=== PATIENT | male | born 1975 | race Caucasian/White ===

== ENCOUNTER 2019-06-11 08:23 | Emergency (ER) | payer BC, OTHER ==
[~2019-06-11] VITALS: Ht 182.9 cm; Wt 105.7 kg
--- NOTE | 2019-06-11 08:52 | NUR ---
SUGAR 583 NOTIFIED
[2019-06-11] MEDS: IV NS 0.9% 1,000 ML BAG IV ONE (09:20)
[2019-06-11 09:21] LABS: BASOPHILS % (AUTO) 0.5 % (0.0-2.0); EOSINOPHILS % (AUTO) 0.6 % (0.0-6.0); HEMATOCRIT 44 % (39-51); HEMOGLOBIN 14.4 g/dL (13.5-17.5); LYMPHOCYTES # (AUTO) 2.1 /CMM (0.8-4.8); LYMPHOCYTES % (AUTO) 41.1 % (20.0-44.0); MEAN CORPUSCULAR HGB CONC 32 g/dl (31.0-36.0); MEAN CORPUSCULAR VOLUME 87 fL (80-96); MONOCYTES # (AUTO) 0.4 /CMM (0.1-1.30); MONOCYTES % (AUTO) 8.3 % (2.0-12.0); NEUTROPHILS # (AUTO) 2.5 /CMM (1.8-8.9); NEUTROPHILS % (AUTO) 49.5 % (43.0-81.0); PLATELET COUNT (AUTO) 295 /CMM (150-450); WHITE BLOOD COUNT (AUTO) 5.1 K/uL (4.3-11.0)
--- NOTE | 2019-06-11 09:29 | NUR ---
PATIENT CAME IN TO THE ER C/O DIFFUSE ABDOMINAL PAIN W/ N/V/D X 2 1/2 DAYS. HX CROHN'S ALSO C/O BG READING HIGH FROM DEVICE. ON ROOM AIR, BREATHING EVENLY AND UNLABORED. CONNECTED TO THE MONITOR ACCORDINGLY.
[2019-06-11] MEDS ORDERED: diphenhydrAMINE HCL 50 MG/ML VIAL IV ONE (09:30)
[2019-06-11] MEDS: METOCLOPRAMIDE HCL 10 MG/2 ML VIAL IV ONE (09:30)
[2019-06-11] MEDS: HYDROMORPHONE INJ 2 MG/ML DISP.SYRIN IV ONE ×2 (09:30→10:46)
[2019-06-11] MEDS ORDERED: diphenhydrAMINE HCL 50 MG/ML VIAL ONE (09:31)
[2019-06-11] MEDS ORDERED: METOCLOPRAMIDE HCL 10 MG/2 ML VIAL ONE (09:31)
[2019-06-11] MEDS ORDERED: HYDROMORPHONE INJ 2 MG/ML DISP.SYRIN ONE ×2 (09:31→10:40)
[2019-06-11 09:32] LABS: ALBUMIN 3.4 g/dL (3.4-5.0); CALCIUM, SERUM 9.6 mg/dL (8.5-10.1); CARBON DIOXIDE 25 mmol/L (21-32); CHLORIDE 94 mmol/L (98-107); CREATININE 1.1 mg/dL (0.6-1.3); LIPASE 221 U/L (73-393); POTASSIUM 4.8 mmol/L (3.5-5.1); SODIUM SERUM 129 mmol/L (136-145)
[2019-06-11 09:34] LABS: BILIRUBIN,DIRECT 0.1 mg/dL (0.0-0.2); GLUCOSE 596 mg/dL (74-106); UREA NITROGEN, BLOOD 19 mg/dL (7-18)
[2019-06-11 09:35] LABS: ALANINE AMINOTRANSFERASE 20 U/L (12-78); ALKALINE PHOSPHATASE 86 U/L (46-116); ASPARTATE AMINOTRANSFERASE 12 U/L (15-37); BILIRUBIN,TOTAL 0.4 mg/dL (0.2-1.0)
[2019-06-11 09:36] LABS: TOTAL PROTEIN, SERUM 7.6 g/dL (6.4-8.2)
[2019-06-11] MEDS: diphenhydrAMINE HCL 50 MG/ML VIAL IV ONE (09:42)
[2019-06-11] MEDS ORDERED: INSULIN REGULAR, HUMAN 100 UNIT/ML 10 ML VIAL ONE (09:57)
[2019-06-11] MEDS: INSULIN REGULAR, HUMAN 100 UNIT/ML 10 ML VIAL IV ONE ×2 (10:00→10:30)
[2019-06-11 10:40] LABS: APPEARANCE,URINE Clear (CLEAR); BILIRUBIN,URINE Negative (NEGATIVE); BLOOD, URINE Negative Ery/uL (NEGATIVE); COLOR,URINE Yellow (YELLOW); KETONES,URINE Negative (NEGATIVE); LEUKOCYTE ESTERASE ,URINE Negative (NEGATIVE); NITRITE, URINE Negative (NEGATIVE); PROTEIN,URINE Negative (NEGATIVE); UGLUCOSE >=1000 mg/dL (NEGATIVE); UROBILINOGEN,URINE 0.2 EU/dL (0.2)
[2019-06-11 10:46] LABS: BACTERIA,URINE Rare /HPF (None Seen); RBC,URINE 0-2 /HPF (0-2); SQUAMOUS EPITHELIAL CELL,UR Rare /HPF (None Seen); WBC,URINE 0-2 /HPF (0-3)
[2019-06-11] MEDS ORDERED: diphenhydrAMINE HCL 50 MG CAPSULE ONE (11:24)
[2019-06-11] MEDS: diphenhydrAMINE HCL 50 MG CAPSULE PO ONE (11:28)
[2019-06-11 11:29] VITALS: BP 130/73
--- NOTE | 2019-06-11 11:29 | NUR ---
Patient discharged to home in stable condition. Written and verbal after care instructions given. Patient verbalizes understanding of instruction.IV removed. Catheter intact and site benign. Pressure and 4x4 applied to site. No bleeding noted.
== END 2019-06-11 11:29 | disposition home or self-care (01) ==
LOC: ER 08:23
DX: R10.84 Generalized abdominal pain (principal); E11.65 Type 2 diabetes mellitus with hyperglycemia; R11.2 Nausea with vomiting, unspecified; R19.7 Diarrhea, unspecified; Z98.890 Other specified postprocedural states; Z88.0 Allergy status to penicillin; Z88.1 Allergy status to other antibiotic agents; Z88.5 Allergy status to narcotic agent; Z88.6 Allergy status to analgesic agent; Z88.8 Allergy status to other drugs, medicaments and biological substances
CPT/HCPCS: 36415; 80048; 80076; 81001; 82010; 82962 ×3; 83690; 84484; 85025; 87086; 93005; 96361; 96374; 96375; 96376; 99284; A4216; J1170 ×2; J1200; J1815; J2765; J7030; Q0163; 81000-TC

== ENCOUNTER 2019-06-15 10:59 | Emergency (ER) | payer BC ==
[~2019-06-15] VITALS: Ht 182.9 cm; Wt 105.7 kg
--- NOTE | 2019-06-15 11:30 | NUR ---
PT APPEARS TO BE RESTING COMFORTABLY AND IS ON HIS PHONE. PT IS ON THE MONITOR AND CONTINUOUS PULSE OX. PT STATED THAT HE HAS AN ESOPHAGEAL TEAR/STAGE C ESOPHAGITIS. PT STATED THAT HE HAS CHRONES DISEASE AND IS DUE FOR ANOTHER TEST AT [facility], BUT IT HAS NOT BEEN SET UP YET. PT IS C/O LLQ ABD PAIN AND WHEN ASKED RUBS THE AREA AND HAS A FACIAL [place]. 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 PT WILL CONTINUE TO BE MONITORED.
[2019-06-15] MEDS ORDERED: diphenhydrAMINE HCL 50 MG/ML VIAL IV ONE ×3 (12:30→14:30)
[2019-06-15] MEDS ORDERED: HYDROMORPHONE INJ 2 MG/ML DISP.SYRIN IV ONE (12:30)
[2019-06-15] MEDS ORDERED: IV NS 0.9% 1,000 ML BAG IV ONE (12:30)
[2019-06-15] MEDS ORDERED: ONDANSETRON HCL/PF 4 MG/2 ML VIAL IVP ONE (12:30)
[2019-06-15] MEDS ORDERED: ONDANSETRON HCL/PF 4 MG/2 ML VIAL ONE (12:39)
[2019-06-15] MEDS ORDERED: diphenhydrAMINE HCL 50 MG/ML VIAL ONE ×2 (12:39→14:24)
[2019-06-15] MEDS ORDERED: HYDROMORPHONE 1 MG/1 ML DISP.SYRIN ONE (12:39)
[2019-06-15 12:40] LABS: BASOPHILS % (AUTO) 0.6 % (0.0-2.0); EOSINOPHILS % (AUTO) 0.2 % (0.0-6.0); HEMATOCRIT 44 % (39-51); HEMOGLOBIN 14.6 g/dL (13.5-17.5); LYMPHOCYTES # (AUTO) 1.4 /CMM (0.8-4.8); LYMPHOCYTES % (AUTO) 30.2 % (20.0-44.0); MEAN CORPUSCULAR HGB CONC 33 g/dl (31.0-36.0); MEAN CORPUSCULAR VOLUME 85 fL (80-96); MONOCYTES # (AUTO) 0.3 /CMM (0.1-1.30); MONOCYTES % (AUTO) 5.9 % (2.0-12.0); NEUTROPHILS % (AUTO) 63.1 % (43.0-81.0); PLATELET COUNT (AUTO) 253 /CMM (150-450); RED BLOOD CELL COUNT(AUTO) 5.19 MIL/uL (4.5-6.0); WHITE BLOOD COUNT (AUTO) 4.7 K/uL (4.3-11.0)
[2019-06-15 12:53] LABS: CALCIUM, SERUM 9.5 mg/dL (8.5-10.1); CREATININE 0.7 mg/dL (0.6-1.3); POTASSIUM 4.3 mmol/L (3.5-5.1)
[2019-06-15 12:58] LABS: ALBUMIN 3.3 g/dL (3.4-5.0); BILIRUBIN,DIRECT 0.2 mg/dL (0.0-0.2); BILIRUBIN,TOTAL 0.7 mg/dL (0.2-1.0); TOTAL PROTEIN, SERUM 7.7 g/dL (6.4-8.2)
[2019-06-15] MEDS ORDERED: IV NS 0.9% 250 ML IV ONE (13:52)
[2019-06-15] MEDS ORDERED: CT SWABBABLE VALVE TRANS SET 1 EA INFUS.SET MC ONE (13:52)
[2019-06-15] MEDS ORDERED: IOHEXOL-300 100 ML VIAL IV ONE (13:52)
--- NOTE | 2019-06-15 13:54 | NUR ---
pt refused ct.
--- NOTE | 2019-06-15 14:33 | NUR ---
IV removed. Catheter intact and site benign. Pressure and 4x4 applied to site. No bleeding noted. Patient discharged to home in stable condition. Written and verbal after care instructions given. Patient verbalizes understanding of instruction. PT AMBULATED OUT TO THE LOBBY TO WAIT FOR UBER. PT AMBULATED OUT WITH A STEADY GAIT. VSS.
[2019-06-15 14:37] VITALS: BP 128/81
== END 2019-06-15 14:38 | disposition home or self-care (01) ==
LOC: ER 11:00
DX: R10.32 Left lower quadrant pain (principal); E11.65 Type 2 diabetes mellitus with hyperglycemia; Z76.5 Malingerer [conscious simulation]; Z98.890 Other specified postprocedural states; Z88.0 Allergy status to penicillin; Z88.6 Allergy status to analgesic agent; Z88.1 Allergy status to other antibiotic agents
CPT/HCPCS: 36415; 80048; 80076; 83690; 85025; 85730; 96361; 96374; 96375; 96376; 99283; J1170; J1200 ×2; J2405; J7050; Q9967

== ENCOUNTER 2019-06-20 07:31 | Emergency (ER) | payer BC ==
[~2019-06-20] VITALS: Ht 182.9 cm; Wt 106.1 kg
[2019-06-20] MEDS ORDERED: diphenhydrAMINE HCL 50 MG/ML VIAL IV ONE ×2 (08:30→10:30)
[2019-06-20] MEDS ORDERED: IV NS 0.9% 1,000 ML BAG IV ONE (08:30)
[2019-06-20] MEDS ORDERED: HYDROMORPHONE INJ 2 MG/ML DISP.SYRIN IV ONE ×2 (08:30→10:00)
[2019-06-20] MEDS ORDERED: HYDROMORPHONE INJ 2 MG/ML DISP.SYRIN ONE ×2 (08:34→09:55)
[2019-06-20] MEDS ORDERED: diphenhydrAMINE HCL 50 MG/ML VIAL ONE ×2 (08:34→10:25)
--- NOTE | 2019-06-20 08:46 | NUR ---
"abdominal pain started yesterday worse now". PT AAOX4, VSS. DENIES CP, SOB, DIZZINESS, N/V/D @ THIS TIME. PT SEEN & EVAL'D BY DR. QUIÑONEZ. MEDICATED ORDERED, WILL CONT TO MONITOR.
[2019-06-20 08:48] LABS: BASOPHILS % (AUTO) 0.8 % (0.0-2.0); EOSINOPHILS % (AUTO) 0.8 % (0.0-6.0); HEMATOCRIT 43 % (39-51); LYMPHOCYTES # (AUTO) 1.7 /CMM (0.8-4.8); LYMPHOCYTES % (AUTO) 39.7 % (20.0-44.0); MEAN CORPUSCULAR HGB CONC 33 g/dl (31.0-36.0); MEAN CORPUSCULAR VOLUME 86 fL (80-96); MONOCYTES # (AUTO) 0.4 /CMM (0.1-1.30); MONOCYTES % (AUTO) 9.1 % (2.0-12.0); NEUTROPHILS # (AUTO) 2.1 /CMM (1.8-8.9); NEUTROPHILS % (AUTO) 49.6 % (43.0-81.0); PLATELET COUNT (AUTO) 221 /CMM (150-450); RED BLOOD CELL COUNT(AUTO) 4.94 MIL/uL (4.5-6.0); WHITE BLOOD COUNT (AUTO) 4.2 K/uL (4.3-11.0)
[2019-06-20 09:02] LABS: ALBUMIN 3.3 g/dL (3.4-5.0); BILIRUBIN,DIRECT 0.1 mg/dL (0.0-0.2); BILIRUBIN,TOTAL 0.3 mg/dL (0.2-1.0); CREATININE 0.8 mg/dL (0.6-1.3); TOTAL PROTEIN, SERUM 7.4 g/dL (6.4-8.2)
[2019-06-20 09:03] LABS: POTASSIUM 5.1 mmol/L (3.5-5.1)
[2019-06-20] MEDS ORDERED: IOHEXOL-300 100 ML VIAL IV ONE (09:10)
[2019-06-20] MEDS ORDERED: IV NS 0.9% 250 ML IV ONE (09:10)
--- NOTE | 2019-06-20 10:00 | NUR ---
MEDICATED FOR PAIN PER ERMD ORDER, PT RONI WELL.
--- NOTE | 2019-06-20 10:28 | NUR ---
PT C/O ITCHING, MEDICATED WITH 25 MG OF BENADRYL IVP, PT RONI WELL.
[2019-06-20 10:47] VITALS: BP 130/84
--- NOTE | 2019-06-20 10:48 | NUR ---
Patient discharged to home in stable condition. Written and verbal after care instructions given. Patient verbalizes understanding of instruction. IV removed. Catheter intact and site benign. Pressure and 4x4 applied to site. No bleeding noted. 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
== END 2019-06-20 10:49 | disposition home or self-care (01) ==
LOC: ER 07:35
DX: R10.32 Left lower quadrant pain (principal); E11.9 Type 2 diabetes mellitus without complications; Z98.890 Other specified postprocedural states; Z88.0 Allergy status to penicillin; Z88.6 Allergy status to analgesic agent; Z88.1 Allergy status to other antibiotic agents; Z88.8 Allergy status to other drugs, medicaments and biological substances
CPT/HCPCS: 36415; 74177; 80048; 80076; 83605; 83690; 85025; 96374; 96375; 96376; 99284; J1170 ×2; J1200 ×2; J7030; J7050; Q9967

== ENCOUNTER 2019-07-01 02:31 | Emergency (ER) | payer BC ==
[~2019-07-01] VITALS: Ht 182.9 cm; Wt 101.6 kg
--- NOTE | 2019-07-01 03:52 | NUR ---
PT CAME TO ER BED 12 C/O LLQ ABDOMINAL PAIN. PT STATES THAT HE HAS BEEN HAVING THIS ABDOMINAL PAIN SINCE MONDAY NOON. PATIENT HAS BEEN VOMITING AND HAVING NAUSEA W/ MINIMAL BLOOD IN THE EMESIS. HX OF CROHN'S DISEASE. AAOX4. NO SOB. BREATHING EVENLY AND UNLABORED ON ROOM AIR. CONNECTED TO MONITOR.
[2019-07-01] MEDS ORDERED: IV NS 0.9% 1,000 ML BAG IV ONE ×2 (04:30→06:00)
[2019-07-01 04:55] LABS: BASOPHILS # (AUTO) 0.1 /CMM (0.0-0.2); HEMATOCRIT 40 % (39-51); LYMPHOCYTES # (AUTO) 2.6 /CMM (0.8-4.8); MEAN CORPUSCULAR HGB CONC 33 g/dl (31.0-36.0); MEAN CORPUSCULAR VOLUME 87 fL (80-96); MONOCYTES # (AUTO) 0.5 /CMM (0.1-1.30); MONOCYTES % (AUTO) 7.9 % (2.0-12.0); NEUTROPHILS # (AUTO) 3.2 /CMM (1.8-8.9); NEUTROPHILS % (AUTO) 49.1 % (43.0-81.0); PLATELET COUNT (AUTO) 268 /CMM (150-450); RED BLOOD CELL COUNT(AUTO) 4.59 MIL/uL (4.5-6.0); WHITE BLOOD COUNT (AUTO) 6.5 K/uL (4.3-11.0)
[2019-07-01 05:10] LABS: ALBUMIN 3.5 g/dL (3.4-5.0); BILIRUBIN,DIRECT 0.1 mg/dL (0.0-0.2); BILIRUBIN,TOTAL 0.4 mg/dL (0.2-1.0); CALCIUM, SERUM 9.6 mg/dL (8.5-10.1); POTASSIUM 4.8 mmol/L (3.5-5.1); TOTAL PROTEIN, SERUM 7.6 g/dL (6.4-8.2)
--- NOTE | 2019-07-01 05:11 | NUR ---
BLOOD GLUCOSE 583. AWARE.
[2019-07-01 05:17] LABS: APPEARANCE,URINE CLEAR (CLEAR); BILIRUBIN,URINE NEGATIVE (NEGATIVE); BLOOD, URINE NEGATIVE Ery/uL (NEGATIVE); COLOR,URINE YELLOW (YELLOW); KETONES,URINE NEGATIVE (NEGATIVE); LEUKOCYTE ESTERASE ,URINE NEGATIVE (NEGATIVE); NITRITE, URINE NEGATIVE (NEGATIVE); PH,URINE 5.5 (5.0-8.0); PROTEIN,URINE NEGATIVE (NEGATIVE); UGLUCOSE >=1000 mg/dL (NEGATIVE); UROBILINOGEN,URINE 0.2 EU/dL (0.2)
[2019-07-01] MEDS ORDERED: CT SWABBABLE VALVE TRANS SET 1 EA INFUS.SET MC ONE (05:20)
[2019-07-01] MEDS ORDERED: IOHEXOL-300 100 ML VIAL IV ONE (05:20)
[2019-07-01] MEDS ORDERED: IV NS 0.9% 250 ML IV ONE (05:20)
[2019-07-01 05:30] LABS: BACTERIA,URINE None seen /HPF (None Seen); RBC,URINE 0-2 /HPF (0-2); SQUAMOUS EPITHELIAL CELL,UR Few /HPF (None Seen); WBC,URINE 0-2 /HPF (0-3)
[2019-07-01] MEDS ORDERED: diphenhydrAMINE HCL 50 MG/ML VIAL ONE ×2 (05:35→05:59)
[2019-07-01] MEDS ORDERED: diphenhydrAMINE HCL 50 MG/ML VIAL IV ONE ×2 (06:00→06:30)
[2019-07-01] MEDS ORDERED: ACETAMINOPHEN 325 MG TABLET ONE (06:06)
[2019-07-01] MEDS ORDERED: ACETAMINOPHEN 650 MG/20.3 ML UDC PO ONE (06:30)
--- NOTE | 2019-07-01 07:49 | NUR ---
REPORT GIVEN TO VIR[place] COX FOR MATTHEW.
[2019-07-01 07:55] VITALS: BP 133/70
--- NOTE | 2019-07-01 07:55 | NUR ---
Patient discharged to home in stable condition. Written and verbal after care instructions given. Patient verbalizes understanding of instruction. IV removed. Catheter intact and site benign. Pressure and 4x4 applied to site. No bleeding noted.
== END 2019-07-01 07:56 | disposition home or self-care (01) ==
LOC: ER 02:33
DX: R10.32 Left lower quadrant pain (principal); E11.9 Type 2 diabetes mellitus without complications; Z98.890 Other specified postprocedural states; Z88.0 Allergy status to penicillin; Z88.6 Allergy status to analgesic agent; Z88.1 Allergy status to other antibiotic agents; Z88.8 Allergy status to other drugs, medicaments and biological substances
CPT/HCPCS: 36415; 74177; 80048; 80076; 81001; 83690; 85025; 86140; 96374; 99284; J1200 ×2; J7050; Q9967; 81000-TC

== ENCOUNTER 2019-07-10 09:55 | Emergency (ER) | payer BC ==
[~2019-07-10] VITALS: Ht 182.9 cm; Wt 101.6 kg
[2019-07-10] MEDS ORDERED: ONDANSETRON HCL/PF 4 MG/2 ML VIAL ONE (10:09)
[2019-07-10] MEDS ORDERED: FAMOTIDINE/PF INJ 20 MG/2 ML VIAL IV ONE ×2 (10:10→10:30)
--- NOTE | 2019-07-10 10:15 | NUR ---
patient came in to the er c/o abd pain since wednesday 03/14 ps. On room air, breathing evenly and unlabored. connected to the monitor and pulse ox. kept comfortable, will continue to monitor accordingly.
[2019-07-10] MEDS ORDERED: IV NS 0.9% 1,000 ML BAG IV ONE (10:30)
[2019-07-10] MEDS ORDERED: ONDANSETRON HCL/PF 4 MG/2 ML VIAL IVP ONE (10:30)
[2019-07-10 10:37] LABS: BASOPHILS # (AUTO) 0.1 /CMM (0.0-0.2); EOSINOPHILS % (AUTO) 0.3 % (0.0-6.0); HEMATOCRIT 49 % (39-51); HEMOGLOBIN 16.1 g/dL (13.5-17.5); LYMPHOCYTES # (AUTO) 1.9 /CMM (0.8-4.8); LYMPHOCYTES % (AUTO) 24.2 % (20.0-44.0); MEAN CORPUSCULAR HGB CONC 33 g/dl (31.0-36.0); MEAN CORPUSCULAR VOLUME 87 fL (80-96); MONOCYTES # (AUTO) 0.4 /CMM (0.1-1.30); MONOCYTES % (AUTO) 4.7 % (2.0-12.0); NEUTROPHILS # (AUTO) 5.5 /CMM (1.8-8.9); NEUTROPHILS % (AUTO) 69.8 % (43.0-81.0); PLATELET COUNT (AUTO) 267 /CMM (150-450); WHITE BLOOD COUNT (AUTO) 7.8 K/uL (4.3-11.0)
[2019-07-10] MEDS ORDERED: diphenhydrAMINE HCL 50 MG/ML VIAL ONE (10:43)
[2019-07-10] MEDS ORDERED: HYDROMORPHONE 1 MG/1 ML DISP.SYRIN ONE (10:43)
[2019-07-10 10:45] LABS: CALCIUM, SERUM 9.3 mg/dL (8.5-10.1); CREATININE 0.8 mg/dL (0.6-1.3); POTASSIUM 5.5 mmol/L (3.5-5.1)
[2019-07-10 10:51] LABS: ALBUMIN 3.6 g/dL (3.4-5.0); BILIRUBIN,DIRECT 0.1 mg/dL (0.0-0.2); BILIRUBIN,TOTAL 0.6 mg/dL (0.2-1.0); TOTAL PROTEIN, SERUM 8.3 g/dL (6.4-8.2)
[2019-07-10] MEDS ORDERED: diphenhydrAMINE HCL 50 MG/ML VIAL IV ONE (11:00)
[2019-07-10] MEDS ORDERED: HYDROMORPHONE 1 MG/1 ML DISP.SYRIN IV ONE (11:00)
[2019-07-10] MEDS ORDERED: INSULIN REGULAR, HUMAN 100 UNIT/ML 10 ML VIAL ONE (11:14)
[2019-07-10] MEDS ORDERED: INSULIN REGULAR, HUMAN 100 UNIT/ML 10 ML VIAL IV ONE (11:30)
--- NOTE | 2019-07-10 11:49 | NUR ---
IV removed. Catheter intact and site benign. Pressure and 4x4 applied to site. No bleeding noted.Patient discharged to home in stable condition. Written and verbal after care instructions given. Patient verbalizes understanding of instruction. Instructed patient not to drive. Patient verbalized he's going to take UBER.
[2019-07-10 11:50] VITALS: BP 108/74
== END 2019-07-10 11:51 | disposition home or self-care (01) ==
LOC: ER 09:55
DX: R10.30 Lower abdominal pain, unspecified (principal); E11.65 Type 2 diabetes mellitus with hyperglycemia; R11.2 Nausea with vomiting, unspecified; G89.29 Other chronic pain; Z76.5 Malingerer [conscious simulation]; Z88.0 Allergy status to penicillin; Z88.6 Allergy status to analgesic agent; Z88.1 Allergy status to other antibiotic agents; Z88.5 Allergy status to narcotic agent; Z88.8 Allergy status to other drugs, medicaments and biological substances
CPT/HCPCS: 36415; 80048; 80076; 83690; 85025; 96361; 96374; 96375; 99283; J1170; J1200; J1815; J2405; J7030; J3490

== ENCOUNTER 2019-08-14 05:44 | Emergency (ER) | payer BC ==
[~2019-08-14] VITALS: Ht 182.9 cm; Wt 104.3 kg
--- NOTE | 2019-08-14 06:00 | NUR ---
PT AAOX4. AMBULATORY WITH STEADY GAIT. C/O L SHOULDER PAIN 12/12. PT HAD ABCESS DRAINED AND HAS WOUND VAC. PER PT, PT HAS BEEN HAVING FEVER AND CHILLS. FEVER TAKEN CARE OF BY TAKING TYLENOL. VSS. NO ACUTE DISTRESS NOTED. RR EVEN AND UNLABORED. NO ACUTE DISTRESS NOTED. WILL CONTINUE TO MONITOR.
--- NOTE | 2019-08-14 06:42 | NUR ---
Patient discharged to home in stable condition. Written and verbal after care instructions given. Patient verbalizes understanding of instruction. ambulatory with a steady gait
[2019-08-14 06:43] VITALS: BP 129/92
== END 2019-08-14 06:45 | disposition home or self-care (01) ==
LOC: ER 05:49
DX: L02.414 Cutaneous abscess of left upper limb (principal); G89.29 Other chronic pain; R10.9 Unspecified abdominal pain; K50.90 Crohn's disease, unspecified, without complications; Z98.890 Other specified postprocedural states; Z88.0 Allergy status to penicillin; Z88.6 Allergy status to analgesic agent; Z88.5 Allergy status to narcotic agent; Z88.8 Allergy status to other drugs, medicaments and biological substances

== ENCOUNTER 2019-10-14 16:13 | Emergency (ER) | payer BC ==
[~2019-10-14] VITALS: Ht 172.7 cm; Wt 113.4 kg
--- NOTE | 2019-10-14 16:30 | NUR ---
patient came in to the er c/o "Abdominal Pain/Nause/vomiting I have Hx Chrons". On room air, breathing evenly and unlabored. connected to the monitor and pulse ox. kept comfortable, will continue to monitor accordingly.
[2019-10-14 17:11] VITALS: BP 145/81
--- NOTE | 2019-10-14 17:11 | NUR ---
Patient discharged to home in stable condition. Written and verbal after care instructions given. Patient verbalizes understanding of instruction.
== END 2019-10-14 17:11 | disposition home or self-care (01) ==
LOC: ER 16:13
DX: F41.9 Anxiety disorder, unspecified (principal); F43.0 Acute stress reaction; E11.9 Type 2 diabetes mellitus without complications; Z98.890 Other specified postprocedural states; Z88.0 Allergy status to penicillin; Z88.6 Allergy status to analgesic agent; Z88.1 Allergy status to other antibiotic agents; Z88.8 Allergy status to other drugs, medicaments and biological substances